=== PATIENT | female | born 1970 | race Caucasian/White ===

== ENCOUNTER 2016-11-29 15:33 | Outpatient (CLI) | payer OTHER, MEDICARE, MEDICAID ==
--- NOTE | 2016-11-30 12:01 | XRAY Report ---
TWO VIEW CHEST: 11/29/2016 CLINICAL INDICATION: Bronchitis. FINDINGS: Frontal and lateral views of the chest demonstrate a normal cardiac silhouette. The lungs are clear. No effusion or pneumothorax is present. IMPRESSION: NO EVIDENCE OF ACUTE CARDIOPULMONARY DISEASE. JOB #: [id number] EXT JOB #:[id number]
== END 2016-11-29 15:34 | disposition home or self-care (01) ==
LOC: DI.N 15:33
PROVIDERS: ATTEND Physician Assistant
DX: J40 Bronchitis, not specified as acute or chronic (principal)
CPT/HCPCS: 71020

== ENCOUNTER 2017-01-05 15:28 | Outpatient (CLI) | payer OTHER, MEDICARE, MEDICAID ==
--- NOTE | 2017-01-06 18:35 | XRAY Report ---
EXAM: LUMBOSACRAL SPINE RADIOGRAPHY EXAM DATE: 01/05/2017 04:08 p.m. CLINICAL HISTORY: Low back pain for 2 weeks. COMPARISONS: 09/15/2015. TECHNIQUE: 3 views. FINDINGS: Alignment: Normal. No spondylolisthesis or scoliosis. Bones: Five [id number] lumbar vertebral bodies are present. No fractures or bone lesions. Disks: Disk space narrowing, L4-L5. Sacroiliac Joints: Unremarkable. Soft Tissues: Normal. The visualized bowel gas pattern is normal. IMPRESSION: Degenerative disk disease, L4-L5. [facility] Referring Provider Line: [phone] SITE ID: [id number]
== END 2017-01-05 15:29 | disposition home or self-care (01) ==
LOC: DI.N 15:28
PROVIDERS: ATTEND Family Medicine
DX: M51.36 Other intervertebral disc degeneration, lumbar region (principal)
CPT/HCPCS: 72100

== ENCOUNTER 2017-01-11 16:29 | Emergency (ER) | payer OTHER, MEDICARE ==
[2017-01-11] MEDS ORDERED: KETOROLAC 60 MG/2 ML VIAL ONE (19:05)
[2017-01-11] MEDS ORDERED: KETOROLAC 60 MG/2 ML VIAL IM STA (19:05)
[2017-01-11] MEDS ORDERED: LIDOCAINE PATCH 5% TOP STA (19:38)
[2017-01-11] MEDS ORDERED: oxyCOD/ACETAMIN 5 MG/325 MG TABLET PO STA ×2 (19:38→21:29)
[2017-01-11] MEDS ORDERED: CYCLOBENZAPRINE 10 MG TABLET PO STA (19:38)
[2017-01-11] MEDS ORDERED: CYCLOBENZAPRINE 10 MG TABLET PO ONE (19:54)
[2017-01-11] MEDS ORDERED: oxyCOD/ACETAMIN 5 MG/325 MG TABLET PO ONE ×2 (19:54→21:36)
[2017-01-11] MEDS ORDERED: LIDOCAINE PATCH 5% TOP ONE ×2 (19:54→19:57)
--- NOTE | 2017-01-11 20:07 | ED Physician Documentation ---
History of Present Illness - Stated complaint Stated Complaint: GLF,BACK PAIN - Chief complaint Chief Complaint: Back Pain - Additonal information Additional information: hx from pt 46 female hx back pain and HNP sees a neurologist had appt last week, has an appt next week while shopping her cart flipped and she fell on her back severe low back pain with radiation to legs no numbness, no saddle anesthesia, no incont no abd pain no fever no recent dental work surgery IV meds or drugs Review of Systems Constitutional: denies: Fever, Chills Cardiac: denies: Chest pain / pressure Respiratory: denies: Dyspnea GI: denies: Abdominal Pain : reports: Incontinent. 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 - Present Medications Home Medications: Ambulatory Orders Medication Instructions Recorded Confirmed Carisoprodol [Soma] 350 mg PO Q8H PRN #15 tablet 01/11/17 Cough Medicine Pills 1 tab PO DAILY 01/11/17 01/11/17 Levothyroxine Sodium 137 mcg PO DAILY 01/11/17 01/11/17 Lidocaine Patch 5% [Lidoderm Patch] 1 each TOP DAILY PRN #10 patch 01/11/17 Lisinopril 20 mg PO DAILY 01/11/17 01/11/17 predniSONE [Deltasone] 20 mg PO [id number] #21 tab 01/11/17 - Allergies Allergies/Adverse Reactions: Allergies Allergy/AdvReac Type Severity Reaction Status Date / Time cefadroxil hydrate * Allergy Anaphylaxis Verified 01/11/17 16:39 [From Betito] codeine Allergy Itching Verified 01/11/17 16:39 morphine Allergy Itching Verified 01/11/17 16:39 - Social History Does the pt smoke?: No Smoking Status: Current every day smoker Does the pt drink ETOH?: No Does the pt have substance abuse?: No - Immunizations Immunizations are current?: Yes - POLST Patient has POLST: No PD ED PE NORMAL - Vitals Vital signs reviewed: Yes - General General: Alert and oriented X 3 - HEENT HEENT: PERRL - Neck Neck: Supple, no meningeal sign - Cardiac Cardiac: RRR - Respiratory Respiratory: No respiratory distress - Abdomen Abdomen: Soft, Non tender, Other (no pulsatile mass) - Back Back: No spinal TTP, Other (diffuse low back TTP no focal spine pain redness swelling, limited ROM) - Derm Derm: Normal color - Neuro Neuro: Alert and oriented X 3, No motor deficit, No sensory deficit, Other (hip flexion knee ext foot dorsi plantar and great toe ext all 5/5, nl sensation, denies saddle anesthesia, neg SLR yoly) Results - Vitals Vitals: Vital Signs - 24 hr 01/11/17 01/11/17 01/11/17 16:35 18:02 20:41 Temperature 36 C L 36.0 C L 37.2 C Heart Rate 96 88 78 Respiratory 16 17 22 Rate Blood Pressure 154/102 H 136/87 H 147/98 H O2 Saturation 98 99 99 01/11/17 22:09 Temperature 37.2 C Heart Rate 66 Respiratory 18 Rate Blood Pressure 156/93 H O2 Saturation 96 Oxygen O2 Source Room air - Rads (name of study) L spine Radiology: See rad report (no fx) PD MEDICAL DECISION MAKING - ED course ED course: pt given toradol IM lido patch and 2 percocet xrays neg pt requesting more pain meds -wants another injection - gave decadron IM checked JORGE A, pt has received > 4000 pills of controlled substances (valium oxycodone ambien and tramadol) in the last year - so no further narcotics Departure - Departure Disposition: 01 Home, Self Care Clinical Impression: Back pain Qualifiers: Back pain location: low back pain Chronicity: acute Back pain laterality: bilateral Sciatica presence: with sciatica Sciatica laterality: bilateral sciatica Qualified Code(s): M54.42 - Lumbago with sciatica, left side Condition: Good Instructions: ED Sciatica, ED Low Back Pain Injury Follow-Up: Ajay Lezama MD [Primary Care Provider] - Prescriptions: predniSONE [Deltasone] 20 mg PO [id number] #21 tab Lidocaine Patch 5% [Lidoderm Patch] 1 each TOP DAILY PRN #10 patch PRN Reason: Pain Carisoprodol [Soma] 350 mg PO Q8H PRN #15 tablet PRN Reason: muscle spasm Comments: The xray was fine - no fracture I have prescribed lidocaine patches which you can apply to the spot that hurts the most up to 12 hr a day, some which is a muscle relaxant you can try instead of your valium (but not both), and a tapering course of steroids to decrease inflammation and sciatica pain Also your blood pressure was high tonight so please follow up with your PMD Forms: Activity restrictions Discharge Date/Time: 01/11/17 22:09
--- NOTE | 2017-01-11 20:16 | XRAY Preliminary Report ---
Exam: XR Lumbar Spine 2 View IMPRESSION: 1. No evidence for acute fracture. 2. Minimal to mild degenerative disk disease. [id number] lower lumbar facet arthropathy. See ab vaughn. [facility] SITE ID: [id number]
--- NOTE | 2017-01-11 20:19 | XRAY Report ---
EXAM: LUMBAR SPINE RADIOGRAPHY EXAM DATE: 01/11/2017 07:56 PM. CLINICAL HISTORY: Fall low back pain. COMPARISONS: None. TECHNIQUE: 2 Views. FINDINGS: Minimal anterolisthesis of L4-L5, could be degenerative. Mild facet arthropathy at L4-L5 and this co uld be degenerative. Mild to moderate facet arthropathy at L5-S1. Mild disk height loss at L5-S1 and L4-L5 as well as L2-L3. Minimal diffuse endplate osteophytes in the lumbar spine. No evidence for acute fracture. 5 lumbar type vertebra are seen. An intrauterine device is seen in the pelvis. IMPRESSION: 1. No evidence for acute fracture. 2. Minimal to mild degenerative disk disease. [id number] lower lumbar facet arthropathy. See ab vaughn. [facility] Referring Provider Line: [phone] SITE ID: [id number]
[2017-01-11] MEDS ORDERED: DEXAMETHASONE 10 MG/ML VIAL IM STA (21:29)
[2017-01-11] MEDS ORDERED: DEXAMETHASONE 10 MG/ML VIAL ONE (21:36)
[2017-01-11] MEDS ORDERED: oxyCODONE/ACET 5/325 Prepack 4 PO STA (21:54)
[2017-01-11] MEDS ORDERED: oxyCODONE/ACET 5/325 Prepack 4 PO ONE (22:00)
[2017-01-11 22:10] VITALS: BP 156/93
== END 2017-01-11 22:09 | disposition home or self-care (01) ==
LOC: ED 16:29
DX: M54.42 Lumbago with sciatica, left side (principal); W01.0XXA Fall on same level from slipping, tripping and stumbling without subsequent striking against object, initial encounter; Y92.59 Other trade areas as the place of occurrence of the external cause; I10 Essential (primary) hypertension; E03.9 Hypothyroidism, unspecified; F17.200 Nicotine dependence, unspecified, uncomplicated
CPT/HCPCS: 72100; 96372; 99283; 99284; A9270

== ENCOUNTER 2017-03-26 09:22 | Emergency (ER) | payer MEDICARE, MEDICAID ==
[2017-03-26 09:45] VITALS: BP 164/104
--- NOTE | 2017-03-26 10:33 | ED Physician Documentation ---
PD HPI SKIN - Stated complaint Stated Complaint: RED PAINFUL BUMP ON BACK - Chief complaint Chief Complaint: Wound - History obtained from History obtained from: Patient - History of Present Illness Timing - onset: How many days ago (6) Timing - duration: Days (6) Timing - details: Gradual onset, Still present Location: Back Quality / character: Painful, Raised, Swelling Associated symptoms: No: Fever, Myalgias Similar symptoms before: Has not had sx before Recently seen: Not recently seen - Additional information Additional information: 46-year-old female has a mass in the middle of her back that is swollen tender erythematous and painful. She does not renumber having a mass there previously this is become more painful over the past week and now is intolerable. Review of Systems Constitutional: denies: Fever Respiratory: denies: Cough GI: denies: Vomiting : denies: Dysuria Skin: reports: Lesions. denies: Rash Musculoskeletal: reports: Neck pain, Back pain. 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 - Present Medications Home Medications: Ambulatory Orders Medication Instructions Recorded Confirmed Carisoprodol [Soma] 350 mg PO Q8H PRN #15 tablet 01/11/17 Levothyroxine Sodium 137 mcg PO DAILY 01/11/17 01/11/17 Lisinopril 20 mg PO DAILY 01/11/17 01/11/17 HYDROcod/ACETAM 5/325 [[place] 5/325] 1 - 2 ea PO Q6H PRN #15 tablet 03/26/17 Sulfamethoxazole/Trimethoprim 1 each PO BID #14 tablet 03/26/17 [Sulfamethoxazole-Tmp Ds Tablet] - Allergies Allergies/Adverse Reactions: Allergies Allergy/AdvReac Type Severity Reaction Status Date / Time cefadroxil hydrate * Allergy Anaphylaxis Verified 01/11/17 16:39 [From Betito] codeine Allergy Itching Verified 01/11/17 16:39 morphine Allergy Itching Verified 01/11/17 16:39 - Social History Does the pt smoke?: No Smoking Status: Never smoker Does the pt drink ETOH?: No Does the pt have substance abuse?: No - Immunizations Immunizations are current?: Yes - POLST Patient has POLST: No PD ED PE NORMAL - Vitals Vital signs reviewed: Yes (Hypertensive) - General General: No acute distress, Well developed/nourished - HEENT HEENT: Atraumatic, PERRL, EOMI - Neck Neck: Supple, no meningeal sign - Respiratory Respiratory: No respiratory distress - Derm Derm: Normal color, Warm and dry, Other (There is a 2 cm round firm mass in the center of the upper back. The area is tender there is surrounding erythema and there is fluctuance present.) - Extremities Extremities: No deformity, No edema - Neuro Neuro: No motor deficit, No sensory deficit - Psych Psych: Normal mood, Normal affect Results - Vitals Vitals: Vital Signs - 24 hr 03/26/17 09:40 Temperature 37.3 C Heart Rate 65 Respiratory 16 Rate Blood Pressure 164/104 H O2 Saturation 100 Oxygen O2 Source Room air - Labs Labs: Microbiology 03/26/17 10:30 Wound Culture - Preliminary Abscess Procedures - Abscess I&D (location) back Preparation: Confirmed with ultrasound, Chlorhexadine, Marcaine 0.5% Incision: Incised with scalpel, Purulent drainage, Loculations broken, Irrigated , Culture obtained Other: Pt tolerated well, Dressing applied, Antibiotic prescribed PD MEDICAL DECISION MAKING - ED course Complexity details: considered differential, d/w patient ED course: 46-year-old female with a mass in the back that appears to be a ruptured sebaceous cyst. The mass is incised and drained she is instructed that she may still have to have removal of the cyst sac when information is resolved. Pharmacyst called and the norco was refused as she has recent script for oxy that was an 18 day supply on 03-15-17. I did not discuss the pain medication specifically with the patient prior to writing the script. Departure - Departure Disposition: 01 Home, Self Care Clinical Impression: Infected sebaceous cyst of skin Condition: Stable Instructions: ED Cyst Sebaceous Infec IandD Follow-Up: Ajay Lezama MD [Primary Care Provider] - Prescriptions: HYDROcod/ACETAM 5/325 [[place] 5/325] 1 - 2 ea PO Q6H PRN #15 tablet PRN Reason: Pain Sulfamethoxazole/Trimethoprim [Sulfamethoxazole-Tmp Ds Tablet] 1 each PO BID # 14 tablet Discharge Date/Time: 03/26/17 10:46
== END 2017-03-26 10:46 | disposition home or self-care (01) ==
LOC: ED 09:22
DX: L72.3 Sebaceous cyst (principal); L08.9 Local infection of the skin and subcutaneous tissue, unspecified; I10 Essential (primary) hypertension; E03.9 Hypothyroidism, unspecified
CPT/HCPCS: 10060; 87070; 87205; 99283

== ENCOUNTER 2017-04-23 13:04 | Outpatient (CLI) | payer MEDICARE, MEDICAID ==
[2017-04-23 14:05] LABS: BASOPHILS # (AUTO) 0.1 10^3/uL (0.0-0.1); BASOPHILS % (AUTO) 1.4 %; EOSINOPHILS # (AUTO) 0.5 10^3/uL (0.0-0.7); LYMPHOCYTES # (AUTO) 1.9 10^3/uL (1.5-3.5); LYMPHOCYTES % (AUTO) 23.7 %; MEAN CORPUSCULAR HEMOGLOBIN 31.4 pg (27.0-31.0); MEAN CORPUSCULAR HGB CONC 34.1 g/dL (32.0-36.0); MEAN CORPUSCULAR VOLUME 91.9 fL (81.0-99.0); MEAN PLATELET VOLUME 7.4 fL (7.9-10.8); MONOCYTES # (AUTO) 0.6 10^3/uL (0.0-1.0); MONOCYTES % (AUTO) 7.5 %; NEUTROPHILS % (AUTO) 61.4 %; RED BLOOD COUNT 4.46 10^6/uL (4.20-5.40); UNCORRECTED WHITE BLOOD COUNT 8.2 x10^3/uL; WHITE BLOOD COUNT 8.2 x10^3/uL (4.8-10.8)
[2017-04-23 14:25] LABS: CALCIUM 8.7 mg/dL (8.5-10.3); POTASSIUM 4.1 mmol/L (3.5-5.0)
== END 2017-04-23 13:05 | disposition home or self-care (01) ==
LOC: RT 13:04
PROVIDERS: ATTEND Orthopaedic Surgery
DX: Z01.818 Encounter for other preprocedural examination (principal)
CPT/HCPCS: 36415; 80048; 85025; 93005

== ENCOUNTER 2017-08-07 11:02 | Outpatient (CLI) | payer MEDICARE, MEDICAID ==
[2017-08-07 11:24] LABS: BASOPHILS % (AUTO) 0.7 %; EOSINOPHILS # (AUTO) 0.1 10^3/uL (0.0-0.7); EOSINOPHILS % (AUTO) 1.1 %; HGB - HEMOGLOBIN 16.4 g/dL (12.0-16.0); LYMPHOCYTES # (AUTO) 1.6 10^3/uL (1.5-3.5); LYMPHOCYTES % (AUTO) 21.9 %; MEAN CORPUSCULAR HEMOGLOBIN 31.4 pg (27.0-31.0); MEAN CORPUSCULAR HGB CONC 34.7 g/dL (32.0-36.0); MEAN CORPUSCULAR VOLUME 90.6 fL (81.0-99.0); MEAN PLATELET VOLUME 7.6 fL (7.9-10.8); MONOCYTES # (AUTO) 0.5 10^3/uL (0.0-1.0); MONOCYTES % (AUTO) 7.4 %; NEUTROPHILS % (AUTO) 68.9 %; PLT - PLATELET COUNT 248 10^3/uL (130-450); RED BLOOD COUNT 5.22 10^6/uL (4.20-5.40); RED CELL DISTRIBUTION WIDTH 13.5 % (12.0-15.0); WHITE BLOOD COUNT 7.2 x10^3/uL (4.8-10.8)
[2017-08-07 11:30] LABS: INR 1.1 (0.8-1.2); PT - PROTHROMBIN TIME 12.1 secs (9.9-12.6)
[2017-08-07 12:16] LABS: THYROID STIMULATING HORMONE 6.79 uIU/mL (0.34-5.60)
[2017-08-07 12:18] LABS: FREE T4 (FREE THYROXINE) 1.1 ng/dL (0.58-1.64)
[2017-08-07 12:40] LABS: ALBUMIN 4.6 g/dL (3.2-5.5); ALBUMIN/GLOBULIN RATIO 1.6 (1.0-2.2); BILIRUBIN,TOTAL 0.2 mg/dL (0.2-1.0); CALCIUM 9.3 mg/dL (8.5-10.3); CREATININE 1.1 mg/dL (0.4-1.0); TOTAL PROTEIN 7.5 g/dL (6.7-8.2)
== END 2017-08-07 11:03 | disposition home or self-care (01) ==
LOC: LAB 11:02
PROVIDERS: ATTEND Neurological Surgery
DX: Z01.818 Encounter for other preprocedural examination (principal); I10 Essential (primary) hypertension; E03.9 Hypothyroidism, unspecified; M47.816 Spondylosis without myelopathy or radiculopathy, lumbar region
CPT/HCPCS: 36415; 80053; 84439; 84443; 85025; 85610

== ENCOUNTER 2018-01-15 09:49 | Emergency (ER) | payer MEDICARE, MEDICAID ==
[2018-01-15] MEDS ORDERED: DEXAMETHASONE 10 MG/ML VIAL PO STA (11:46)
[2018-01-15] MEDS ORDERED: KETOROLAC 60 MG/2 ML VIAL IM STA (11:46)
[2018-01-15] MEDS ORDERED: oxyCOD/ACETAMIN 5 MG/325 MG TABLET PO STA (11:48)
[2018-01-15] MEDS ORDERED: HYDROmorphone 1 MG/ML CARPUJECT IM STA (12:58)
[2018-01-15 13:30] VITALS: BP 150/88
--- NOTE | 2018-01-15 13:47 | ED Physician Documentation ---
PD HPI BACK PAIN - Stated complaint Stated Complaint: BACK PX - Chief complaint Chief Complaint: Back Pain - History obtained from History obtained from: Patient - History of Present Illness Timing - onset: How many days ago (3) Timing - duration: Days (3) Timing - details: Still present Location: Lower Quality: Pain, Similar to prior episodes Associated symptoms: No: Fever, Weakness, Numbness, Incontinent of urine Worsened by: Movement, Twisting Contributing factors: Lifting Similar symptoms before: Treatment (Previous lumbar spine surgery in July 2017.) - Additional information Additional information: The patient is a 47-year-old female who presents with low back pain that started 3 days ago and has persisted since that time. 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 She denies fever, numbness, weakness, or incontinence of urine. She has history of similar symptoms in the past. She underwent PLIF in July 2017. Review of Systems Constitutional: denies: Fever Nose: denies: Congestion Cardiac: denies: Chest pain / pressure Respiratory: denies: Dyspnea GI: denies: Abdominal Pain : denies: Dysuria, Incontinent Skin: denies: Rash Musculoskeletal: reports: Back pain. 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 - Present Medications Home Medications: Ambulatory Orders Medication Instructions Recorded Confirmed Levothyroxine Sodium 137 mcg PO DAILY 01/11/17 01/11/17 Lisinopril 20 mg PO DAILY 01/11/17 01/11/17 FLUoxetine [PROzac] 40 mg 01/15/18 HYDROcod/ACETAM 5/325 [Vicodin 1 - 2 ea PO Q6H PRN #12 tablet 01/15/18 5/325] predniSONE [Prednisone] 20 mg PO DAILY #5 tablet 01/15/18 - Allergies Allergies/Adverse Reactions: Allergies Allergy/AdvReac Type Severity Reaction Status Date / Time tramadol Allergy Mild Itching Verified 01/15/18 10:41 cefadroxil hydrate * Allergy Anaphylaxis Verified 01/11/17 16:39 [From Betito] codeine Allergy Itching Verified 01/11/17 16:39 morphine Allergy Itching Verified 01/11/17 16:39 - Social History Does the pt smoke?: No Smoking Status: Never smoker Does the pt drink ETOH?: No Does the pt have substance abuse?: No - Immunizations Immunizations are current?: Yes - POLST Patient has POLST: No PD ED PE NORMAL - Vitals Vital signs reviewed: Yes (initially hypertensive.) - General General: Alert and oriented X 3, Well developed/nourished - HEENT HEENT: Atraumatic - Neck Neck: No bony TTP - Respiratory Respiratory: No respiratory distress - Abdomen Abdomen: Soft, Non tender - Back Back: No CVA TTP, Other (Well-healed surgical scar over the lumbar region. There is tenderness to palpation over the lumbar spine, as well as paralumbar musculature bilaterally.) - Derm Derm: No rash - Extremities Extremities: No edema, No calf tenderness / cord, Other (Straight leg raise test is negative bilaterally.) - Neuro Neuro: Alert and oriented X 3, No motor deficit, No sensory deficit Results - Vitals Vitals: Oxygen O2 Source Room air PD MEDICAL DECISION MAKING - ED course Complexity details: reviewed old records, re-evaluated patient, considered differential, d/w patient ED course: The patient's presentation is most consistent with acute exacerbation of recurrent low back pain. Her clinical presentation does not suggest epidural abscess, spinal stenosis, or cauda equina syndrome. Treatment in the emergency department included administration of Percocet 1 tablet orally and ketorolac 60 mg IM. On reevaluation there is no improvement of her symptoms. Subsequent treatment included administration of dexamethasone 10 mg orally and hydromorphone 1 mg IM. This provided slight improvement of her symptoms. She is being discharged with prescription for prednisone and for Vicodin, 12 tablets. I discussed with her symptomatic treatment, outpatient follow-up, as well as potentially worrisome signs or symptoms that should prompt reevaluation in the emergency department. - Sepsis Event Vital Signs: Oxygen O2 Source Room air Departure - Departure Disposition: 01 Home, Self Care Clinical Impression: Back pain Qualifiers: Back pain location: low back pain Chronicity: acute Back pain laterality: bilateral Sciatica presence: without sciatica Qualified Code(s): M54.5 - Low back pain Condition: Stable Instructions: ED Low Back Pain Injury Follow-Up: Ajay Lezama MD [Primary Care Provider] - Prescriptions: HYDROcod/ACETAM 5/325 [Vicodin 5/325] 1 - 2 ea PO Q6H PRN #12 tablet PRN Reason: Pain predniSONE [Prednisone] 20 mg PO DAILY #5 tablet Comments: Apply ice pack to your lower back intermittently for the next 3 days. He can use ibuprofen, up to 800 mg 3 times daily for its anti-inflammatory effect. Take prednisone once daily as prescribed for the next 5 days. You can use Vicodin as prescribed if needed for pain. Let pain be your guide to activity level. Follow up with your primary physician as planned. Return to the emergency department if you develop increasing back pain, urinary incontinence, fever, or otherwise worsening symptoms. Forms: Activity restrictions Discharge Date/Time: 01/15/18 14:09
== END 2018-01-15 14:09 | disposition home or self-care (01) ==
LOC: ED 09:49
DX: M54.5 Low back pain (principal); G89.29 Other chronic pain; I10 Essential (primary) hypertension; E03.9 Hypothyroidism, unspecified
CPT/HCPCS: 96372; 99283; 99284; A9270; J1170

== ENCOUNTER 2018-01-29 13:21 | Emergency (ER) | payer MEDICARE, MEDICAID ==
--- NOTE | 2018-01-29 13:31 | ED Physician Documentation ---
PD HPI SKIN - Stated complaint Stated Complaint: BEE STINGS ALL OVER - Chief complaint Chief Complaint: General - History obtained from History obtained from: Patient - History of Present Illness Timing - onset: How many minutes ago (15-20 minutes ago, was near hospital doing yard work and unintentionally poked into a bee nest in the bushes she was trimming, getting multiple bee stings (about 6-8). Having pain and slight nausea. She did jump back and lost balance, rolling to the ground and has some pain in low back, which hurts her regularly anyway. Redness and swelling at stings, no generalized symptoms.), Today Timing - duration: Minutes Timing - details: Abrupt onset Location: Other (multiple bee stings on arms, trunk - none on face nor legs ( wearing pants)) Quality / character: Painful, Swelling Associated symptoms: N/V/D (slight nausea without vomiting.), Other (no feeling of throat swelling). No: Fever, Myalgias, Dyspnea Contributing factors: Insect bite /sting Recently seen: Not recently seen Review of Systems Constitutional: reports: Myalgias. denies: Fever, Chills Nose: denies: Rhinorrhea / runny nose, Congestion Throat: denies: Sore throat Cardiac: denies: Chest pain / pressure Respiratory: denies: Dyspnea GI: reports: Nausea. 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 - Present Medications Home Medications: Ambulatory Orders Medication Instructions Recorded Confirmed Levothyroxine Sodium 137 mcg PO DAILY 01/11/17 01/11/17 Lisinopril 20 mg PO DAILY 01/11/17 01/11/17 FLUoxetine [PROzac] 40 mg 01/15/18 HYDROcod/ACETAM 5/325 [Vicodin 1 - 2 ea PO Q6H PRN #12 tablet 01/15/18 5/325] predniSONE [Prednisone] 20 mg PO DAILY #5 tablet 01/15/18 Dexamethasone [Decadron] 4 mg PO DAILY #5 tablet 01/29/18 Oxycodone HCl/Acetaminophen 1 each PO Q6H PRN #15 tablet 01/29/18 [Percocet 5-325 mg Tablet] diphenhydrAMINE [Benadryl] 25 mg PO Q4-6H PRN #30 capsule 01/29/18 - Allergies Allergies/Adverse Reactions: Allergies Allergy/AdvReac Type Severity Reaction Status Date / Time tramadol Allergy Mild Itching Verified 01/15/18 10:41 cefadroxil hydrate * Allergy Anaphylaxis Verified 01/11/17 16:39 [From Duricef] codeine Allergy Itching Verified 01/11/17 16:39 morphine Allergy Itching Verified 01/11/17 16:39 - Social History Does the pt smoke?: No Smoking Status: Never smoker Does the pt drink ETOH?: No Does the pt have substance abuse?: No - Immunizations Immunizations are current?: Yes - POLST Patient has POLST: No PD ED PE NORMAL - Vitals Vital signs reviewed: Yes - General General: Alert and oriented X 3, Well developed/nourished, Other (appears in pain due to multiple bee stings. Slight anxious. No dyspnea nor facial swelling. ) - HEENT HEENT: Pharynx benign - Neck Neck: Supple, no meningeal sign, No adenopathy - Cardiac Cardiac: RRR, No murmur - Respiratory Respiratory: Clear bilaterally - Abdomen Abdomen: Soft, Non tender - Back Back: No spinal TTP - Derm Derm: Warm and dry, Other (several localized areas of tenderness and swelling, hive-like, but only at sting sites. No diffuse hives. ) - Neuro Neuro: Alert and oriented X 3, No motor deficit, No sensory deficit, Normal speech Results - Vitals Vitals: Vital Signs - 24 hr 01/29/18 01/29/18 13:25 14:31 Temperature 35.9 C L 36.3 C L Heart Rate 106 H 87 Respiratory 26 H 18 Rate Blood Pressure 146/94 H 135/86 H O2 Saturation 97 97 Oxygen O2 Source Room air PD MEDICAL DECISION MAKING - Sepsis Event Vital Signs: Vital Signs - 24 hr 01/29/18 01/29/18 13:25 14:31 Temperature 35.9 C L 36.3 C L Heart Rate 106 H 87 Respiratory 26 H 18 Rate Blood Pressure 146/94 H 135/86 H O2 Saturation 97 97 Oxygen O2 Source Room air Departure - Departure Disposition: 01 Home, Self Care Clinical Impression: Accidental bee sting Condition: Stable Record reviewed to determine appropriate education?: Yes Instructions: ED Bite Insect Follow-Up: Ajay Lezama MD [Primary Care Provider] - Prescriptions: Dexamethasone [Decadron] 4 mg PO DAILY #5 tablet diphenhydrAMINE [Benadryl] 25 mg PO Q4-6H PRN #30 capsule PRN Reason: Itching Oxycodone HCl/Acetaminophen [Percocet 5-325 mg Tablet] 1 each PO Q6H PRN #15 tablet PRN Reason: Pain Comments: Ice or cool towels to the sting areas. Tylenol or ibuprofen if needed for pains. Add Percocet if needed for worse pain. Decadron steroid daily for several more days to outlast the immune response to the reaction. These typically will be sore and you feel achy and almost flulike for a few days. Discharge Date/Time: 01/29/18 14:31
[2018-01-29] MEDS ORDERED: diphenhydrAMINE 25 MG CAPSULE PO STA (13:43)
[2018-01-29] MEDS ORDERED: KETOROLAC 30 MG/ML VIAL IM STA (13:43)
[2018-01-29] MEDS ORDERED: DEXAMETHASONE 10 MG/ML VIAL PO STA (13:43)
[2018-01-29] MEDS ORDERED: HYDROcod/ACETAM 5/325 MG TABLET PO STA (13:43)
[2018-01-29] MEDS ORDERED: CHERRY SYRUP 10 ML UDC PO ONE (13:54)
[2018-01-29] MEDS ORDERED: oxyCOD/ACETAMIN 5 MG/325 MG TABLET PO STA (14:22)
[2018-01-29 14:32] VITALS: BP 135/86
== END 2018-01-29 14:31 | disposition home or self-care (01) ==
LOC: ED 13:21
DX: T63.441A Toxic effect of venom of bees, accidental (unintentional), initial encounter (principal); I10 Essential (primary) hypertension; W18.39XA Other fall on same level, initial encounter; Y93.H2 Activity, gardening and landscaping
CPT/HCPCS: 96372; 99283; A9270

== ENCOUNTER 2018-04-03 16:41 | Outpatient (CLI) | payer MEDICARE, MEDICAID ==
--- NOTE | 2018-04-04 14:37 | MRI Report ---
Reason: LATERAL EPICONDYLITIS, RIGHT ELBOW Procedure Date: 04/03/2018 Accession Number: [id number] / [id number] Procedure: MRI - Elbow RT W/O CPT Code: FULL RESULT: EXAM: RIGHT ELBOW MRI WITHOUT CONTRAST EXAM DATE: 04/03/2018 05:33 PM. CLINICAL HISTORY: LATERAL EPICONDYLITIS, RIGHT ELBOW. COMPARISON: None. TECHNIQUE: Multiplanar, multisequence T1-weighted and fluid-sensitive sequences of the elbow without contrast. Other: Motion artifact degrades multiple sequences.. FINDINGS: Bones: There is subchondral cyst formation in the posterior margin of the radial head. Small subchondral cyst in the anterior half of the capitulum. Articular Cartilage: Poorly visualized. There appears to be at least moderate thinning of the hyaline cartilage of the humeral radial joint. Ligaments: The ulnar collateral, lateral ulnar collateral, radial collateral, and annular ligaments are intact. Tendons: There is fluid signal in the common extensor origin, undermining most of the tendon consistent with a high-grade partial-thickness tear. The common flexor origin appears normal. The distal biceps, brachialis, and triceps tendons are unremarkable. Musculature: No edema or fatty atrophy. Other: The cubital tunnel and ulnar nerve are unremarkable. Small joint effusion. The subcutaneous tissues are unremarkable. IMPRESSION: 1. High-grade partial-thickness tear of the common extensor origin. 2. Degenerative change of the humeral radial joint, suggesting a prior osteochondral injury of both capitulum and radius. 3. Small joint effusion. [facility] MUSCULOSKELETAL RADIOLOGY SECTION
== END 2018-04-03 16:42 | disposition home or self-care (01) ==
LOC: DI 16:41
PROVIDERS: ATTEND Orthopaedic Surgery
DX: M77.11 Lateral epicondylitis, right elbow (principal); M25.421 Effusion, right elbow; S56.511A Strain of other extensor muscle, fascia and tendon at forearm level, right arm, initial encounter

== ENCOUNTER 2018-04-04 02:22 | Emergency (ER) | payer MEDICARE, MEDICAID ==
[2018-04-04 02:30] VITALS: BP 159/105
[2018-04-04] MEDS ORDERED: BACITRACIN OINT TOP STA (03:00)
[2018-04-04] MEDS ORDERED: CLINDAMYCIN 150 MG CAPSULE PO STA (03:00)
--- NOTE | 2018-04-04 03:03 | ED Physician Documentation ---
History of Present Illness - Stated complaint Stated Complaint: BLISTER LF MIDDLE FINGER - Chief complaint Chief Complaint: Ext Problem - History obtained from History obtained from: Patient - History of Present Illness Timing: Yesterday Pain level max: 6 Pain level now: 5 Improved by: rest Worsened by: movement - Additonal information Additional information: Patient is a 47-year-old female who states that she started noticing redness and swelling to the left third digit a few days ago, worsening over the past 24 hours. States has had pus draining out of the wound today. Tetanus is up-to-date She is right handed Review of Systems Constitutional: denies: Fever, Chills Neurologic: denies: Focal weakness, Numbness PD PAST MEDICAL HISTORY - Past Medical History Cardiovascular: Hypertension Endocrine/Autoimmune: HyPOthyroidism Musculoskeletal: Chronic back pain, Other - Past Surgical History Past Surgical History: Yes Ortho: Spine surgery /[employer]: section - Present Medications Home Medications: Ambulatory Orders Medication Instructions Recorded Confirmed Levothyroxine Sodium 137 mcg PO DAILY 01/11/17 01/11/17 Lisinopril 20 mg PO DAILY 01/11/17 01/11/17 FLUoxetine [PROzac] 40 mg 01/15/18 HYDROcod/ACETAM 5/325 [Vicodin 1 - 2 ea PO Q6H PRN #12 tablet 01/15/18 5/325] predniSONE [Prednisone] 20 mg PO DAILY #5 tablet 01/15/18 Dexamethasone [Decadron] 4 mg PO DAILY #5 tablet 01/29/18 Oxycodone HCl/Acetaminophen 1 each PO Q6H PRN #15 tablet 01/29/18 [Percocet 5-325 mg Tablet] diphenhydrAMINE [Benadryl] 25 mg PO Q4-6H PRN #30 capsule 01/29/18 Clindamycin HCl [Clindamycin 300MG 300 mg PO Q6H #40 capsule 04/04/18 CAP] - Allergies Allergies/Adverse Reactions: Allergies Allergy/AdvReac Type Severity Reaction Status Date / Time tramadol Allergy Mild Itching Verified 01/15/18 10:41 cefadroxil hydrate * Allergy Anaphylaxis Verified 01/11/17 16:39 [From Betito] codeine Allergy Itching Verified 01/11/17 16:39 morphine Allergy Itching Verified 01/11/17 16:39 - Social History Does the pt smoke?: No Smoking Status: Never smoker Does the pt drink ETOH?: No Does the pt have substance abuse?: No - Immunizations Immunizations are current?: Yes - POLST Patient has POLST: No PD ED PE NORMAL - Vitals Vital signs reviewed: Yes - General General: Alert and oriented X 3, No acute distress - Derm Derm: Warm and dry - Extremities Extremities: Other (L hand 3rd digit - mild erythema and swelling to the mid phalanx. no fluctuance. no drainage. no tenderness along the tendon sheath. NVI.) - Neuro Neuro: Alert and oriented X 3 Results - Vitals Vitals: Vital Signs - 24 hr 04/04/18 02:26 Temperature 35.8 C L Heart Rate 80 Respiratory 20 Rate Blood Pressure 159/105 H O2 Saturation 98 Oxygen O2 Source Room air PD MEDICAL DECISION MAKING - ED course Complexity details: considered differential, d/w patient ED course: Patient is a 47-year-old female with cellulitis of the left third digit. No drainable abscess. No evidence of deep space infection in the palm. No lymphangitic spread. Will place on antibiotics and follow-up with her doctor. Full range of motion present of the finger. No fusiform swelling patient counseled regarding signs and symptoms for which I believe and urgent re- evaluation would be necessary. Patient with good understanding of and agreement to plan and is comfortable going home at this time This document was made in part using voice recognition software. While efforts are made to proofread this document, sound alike and grammatical errors may occur. - Sepsis Event Vital Signs: Vital Signs - 24 hr 04/04/18 02:26 Temperature 35.8 C L Heart Rate 80 Respiratory 20 Rate Blood Pressure 159/105 H O2 Saturation 98 Oxygen O2 Source Room air Departure - Departure Disposition: 01 Home, Self Care Clinical Impression: Cellulitis Qualifiers: Site of cellulitis: extremity Site of cellulitis of extremity: finger Laterality: left Qualified Code(s): L03.012 - Cellulitis of left finger Condition: Good Instructions: ED Infec Skin Cellulitis Follow-Up: Ajay Lezama MD [Primary Care Provider] - Within 3 Days (for wound check) Prescriptions: Clindamycin HCl [Clindamycin 300MG CAP] 300 mg PO Q6H #40 capsule Comments: Take all antibiotics until gone. Return if you worsen. Follow-up with your doctor for further evaluation and care. He should have a wound check with your doctor in 3 days
== END 2018-04-04 03:07 | disposition home or self-care (01) ==
LOC: ED 02:22
DX: L03.012 Cellulitis of left finger (principal); I10 Essential (primary) hypertension; E03.9 Hypothyroidism, unspecified
CPT/HCPCS: 99283; A9270

== ENCOUNTER 2018-04-14 00:57 | Emergency (ER) | payer MEDICARE, MEDICAID ==
[2018-04-14] MEDS ORDERED: HYDROcod/ACETAM 5/325 MG TABLET PO STA (01:14)
--- NOTE | 2018-04-14 01:16 | ED Physician Documentation ---
History of Present Illness - Stated complaint Stated Complaint: R ELBOW PX - Chief complaint Chief Complaint: Ext Problem - Additonal information Additional information: 47-year-old female presents the emergency [id number] female presents the emergency department pain medications for her chronic elbow pain. The patient currently is in pain management and ran out of her narcotics and is here in the emergency department requesting pain control. The patient denies any acute or new injury. Symptoms are the same as normal. No other associated symptoms. No new injuries or complaints Review of Systems Constitutional: denies: Fever Skin: denies: Laceration (s) Musculoskeletal: reports: Extremity pain Immunocompromised: denies: Chemotherapy PD PAST MEDICAL HISTORY - Past Medical History Past Medical History: Yes Cardiovascular: Hypertension Endocrine/Autoimmune: HyPOthyroidism Musculoskeletal: Chronic back pain, Other - Past Surgical History Past Surgical History: Yes Ortho: Spine surgery /[employer]: section - Present Medications Home Medications: Ambulatory Orders Medication Instructions Recorded Confirmed Levothyroxine Sodium 137 mcg PO DAILY 01/11/17 01/11/17 Lisinopril 20 mg PO DAILY 01/11/17 01/11/17 FLUoxetine [PROzac] 40 mg 01/15/18 HYDROcod/ACETAM 5/325 [Vicodin 1 - 2 ea PO Q6H PRN #12 tablet 01/15/18 5/325] predniSONE [Prednisone] 20 mg PO DAILY #5 tablet 01/15/18 Dexamethasone [Decadron] 4 mg PO DAILY #5 tablet 01/29/18 Oxycodone HCl/Acetaminophen 1 each PO Q6H PRN #15 tablet 01/29/18 [Percocet 5-325 mg Tablet] diphenhydrAMINE [Benadryl] 25 mg PO Q4-6H PRN #30 capsule 01/29/18 Clindamycin HCl [Clindamycin 300MG 300 mg PO Q6H #40 capsule 04/04/18 CAP] - Allergies Allergies/Adverse Reactions: Allergies Allergy/AdvReac Type Severity Reaction Status Date / Time tramadol Allergy Mild Itching Verified 04/14/18 01:10 cefadroxil hydrate * Allergy Anaphylaxis Verified 04/14/18 01:10 [From Betito] codeine Allergy Itching Verified 04/14/18 01:10 morphine Allergy Itching Verified 04/14/18 01:10 - Social History Does the pt smoke?: No Smoking Status: Never smoker Does the pt drink ETOH?: No Does the pt have substance abuse?: No - Immunizations Immunizations are current?: Yes - POLST Patient has POLST: No PD ED PE NORMAL - General General: Alert and oriented X 3, No acute distress - HEENT HEENT: Atraumatic, PERRL, EOMI, Ears normal - Extremities Extremities: Other (Full active range of motion of the shoulders, elbows and wrist. No obvious deformity. Normal radial pulses bilaterally and normal cap refill) - Neuro Neuro: Alert and oriented X 3, Normal speech - Psych Psych: Normal affect Results - Vitals Vitals: Vital Signs - 24 hr 04/14/18 01:02 Temperature 36.1 C L Heart Rate 70 Respiratory 16 Rate Blood Pressure 169/112 H O2 Saturation 96 Oxygen O2 Source Room air PD MEDICAL DECISION MAKING - ED course ED course: No acute issues in the emergency department. The patient is here for chronic pain management. I agreed to give the patient 1 tablet of [place] here in the emergency department. I explained to the patient that we do not refill prescriptions of chronic narcotic pain medications. The patient understands. I recommended that she follow-up with her prescriber for refills. Departure - Departure Disposition: 01 Home, Self Care Clinical Impression: Chronic pain Qualifiers: Chronic pain type: other chronic pain Qualified Code(s): G89.29 - Other chronic pain Condition: Good Instructions: ED Chronic Pain Management Follow-Up: Ajay Lezama MD [Primary Care Provider] - Comments: Please follow-up with your physician for ongoing pain management. We do not refill narcotic prescriptions in the emergency department. Please return to the emergency department for any worsening or concerns.
[2018-04-14 01:29] VITALS: BP 170/100
== END 2018-04-14 01:29 | disposition home or self-care (01) ==
LOC: ED 00:57
DX: M25.521 Pain in right elbow (principal); G89.29 Other chronic pain; M54.9 Dorsalgia, unspecified; I10 Essential (primary) hypertension; E03.9 Hypothyroidism, unspecified
CPT/HCPCS: 99283; A9270